=== PATIENT | male | born 1960 | race Hispanic/Latino ===

== ENCOUNTER → 2019-10-24 | Outpatient (CLI) | payer MEDICARE, OTHER ==
[~2019-10-24] MED LIST: ASPI-1005 PO; ATOR20TA65 PO; CALC667C10 PO; FAMO20TA8 PO; FOLI1TAB85 PO; GLIP10TA9 PO; LEVO100T12 PO; LOSA25TA41 PO; PIND10TA2 PO; SEVE800T7 PO; TICA90TA PO
== END | disposition home or self-care (01) ==
LOC: SHCH 10:00
PROVIDERS: ATTEND Internal Medicine Cardiovascular Disease
DX: I10 Essential (primary) hypertension (principal)
CPT/HCPCS: 93306; 93356

== ENCOUNTER → 2019-10-31 | Outpatient (CLI) | payer MEDICARE, OTHER ==
[~2019-10-31] MED LIST changes: -ASPI-1005 PO; -ATOR20TA65 PO; -CALC667C10 PO; -FAMO20TA8 PO; -FOLI1TAB85 PO; -GLIP10TA9 PO; -LEVO100T12 PO; -LOSA25TA41 PO; -PIND10TA2 PO; +REGADENOSON 0.4 MG/5 ML PF SYG IVP SCH; -SEVE800T7 PO; -TICA90TA PO
== END | disposition home or self-care (01) ==
LOC: SHCH 07:52
PROVIDERS: ATTEND Internal Medicine Cardiovascular Disease
DX: I95.1 Orthostatic hypotension (principal); I10 Essential (primary) hypertension; R07.89 Other chest pain; I73.9 Peripheral vascular disease, unspecified
CPT/HCPCS: 78452; 93017; 96374; A9500 ×2; J2785

== ENCOUNTER 2019-12-05 06:06 | Observation (INO) | payer MEDICARE ==
[2019-12-03 10:42] LABS: BASOPHILS % (AUTO) 1.1 % (0.0-5.0); EOSINOPHILS % (AUTO) 4.1 % (0.0-8.0); HEMATOCRIT 34.7 % (42-54); MEAN CORPUSCULAR HGB CONC 33.4 g/dL (32.0-36.0); MEAN CORPUSCULAR VOLUME 101.8 fL (79-99); MONOCYTES % (AUTO) 11.4 % (3.0-13.0); NEUTROPHILS % (AUTO) 61.9 % (40.0-77.0); PLATELET COUNT (AUTO) 216 K/uL (130-400); RED BLOOD CELL COUNT(AUTO) 3.41 MIL/uL (4.50-6.20); RED CELL DISTRIBUTION WIDTH 16.7 % (11.0-15.5); WHITE BLOOD COUNT (AUTO) 6.6 K/uL (4.8-10.8)
[2019-12-03 10:55] LABS: INR 0.92 (0.85-1.15); PARTIAL THROMBOPLASTIN TIME 25.7 SEC (26.3-35.5)
[2019-12-03 11:13] LABS: CREATININE 9.1 mg/dL (0.5-1.5); POTASSIUM 6.2 mmol/L (3.5-5.1)
[2019-12-03 12:05] LABS: APPEARANCE,URINE Clear (CLEAR); BILIRUBIN,URINE Negative (NEGATIVE); COLOR,URINE Yellow (YELLOW); GLUCOSE, URINE (UA) 500 mg/dL (NEGATIVE); KETONES,URINE Negative (NEGATIVE); LEUKOCYTE ESTERASE ,URINE Trace (NEGATIVE); NITRATE,URINE Negative (NEGATIVE); OCCULT BLOOD,URINE Small (NEGATIVE); PH,URINE 7.5 (5.0-8.0); PROTEIN,URINE 300 mg/dL (NEGATIVE)
[2019-12-03 12:40] LABS: BACTERIA,URINE Rare /HPF (None Seen); SQUAMOUS EPITHELIAL CELL,UR Rare /HPF (0-2); WBC,URINE 0-1 /HPF (0-1)
--- NOTE | 2019-12-04 11:05 | NUR ---
MARIA FERNANDA VERMA ON PHONE. ORDERS RECEIVED TO REDRAW POTASSIUM ON AM OF PROCEDURE
[2019-12-04 14:36] VITALS: BP 167/76
[2019-12-05] VITALS (12 sets, daily range): BP systolic 139–182; BP diastolic 64–84
[~2019-12-05] VITALS: Ht 172.7 cm; Wt 100.7 kg
[~2019-12-05 06:06] MED LIST changes: +ASPI-1005 PO; +ATOR20TA65 PO; +CALC667C10 PO; +FAMO20TA8 PO; +FOLI1TAB85 PO; +GLIP10TA9 PO; +LEVO100T12 PO; +PIND10TA2 PO; -REGADENOSON 0.4 MG/5 ML PF SYG IVP SCH; +SEVE800T7 PO
[2019-12-05] MEDS ORDERED: SODIUM CHLORIDE 0.9% 1000ML 1,000 ML IV ONE (07:15)
[2019-12-05] MEDS ORDERED: INSULIN HUMULIN R 100 UNIT/ML 3ML ONE (07:34)
[2019-12-05 08:20] LABS: CREATININE 7.7 mg/dL (0.5-1.5); POTASSIUM 5.2 mmol/L (3.5-5.1)
[2019-12-05] MEDS ORDERED: SODIUM BICARB 50MEQ 50ML VIAL ONE (10:23)
[2019-12-05] MEDS ORDERED: HEPARIN SODIUM 1000UNIT/ML 10ML VIAL ONE (10:23)
[2019-12-05] MEDS ORDERED: IOHEXOL 350 MG/ML 100ML INFUS..BTL IV ONE ×2 (10:24→12:28)
[2019-12-05] MEDS ORDERED: LIDOCAINE HCL 2% 20ML ONE (10:24)
[2019-12-05] MEDS ORDERED: NITROGLYCERIN 2 MG/VIAL VIAL IV ONE (10:45)
[2019-12-05] MEDS ORDERED: BIVALIRUDIN 250 MG/VIAL IV ONE (11:48)
[2019-12-05] MEDS ORDERED: ASPIRIN 325MG EC TAB 325 MG TABLET.DR PO ONE (12:04)
[2019-12-05] MEDS ORDERED: TICAGRELOR 90 MG TABLET ONE (12:04)
[2019-12-05] MEDS ORDERED: LABETALOL 20 MG/4 ML DISP.SYRIN IV ONE ×2 (12:44→13:00)
[2019-12-05] MEDS ORDERED: HYDRALAZINE HCL 20 MG/ML VIAL ONE ×2 (13:42→14:22)
[2019-12-05] MEDS ORDERED: ACETAMINOPHEN EXTRA STRENGTH 500 MG TABLET ONE (14:34)
[2019-12-05] MEDS ORDERED: ACETAMINOPHEN EXTRA STRENGTH 500 MG TABLET PO ONE (15:45)
--- NOTE | 2019-12-05 16:28 | NUR ---
PATIENT TAKEN TO ROOM 421 AND CARE TAKEN OVER BY CHIQUISRN , REPORT GIVEN USING SBAR AND RIGHT FEMORAL SITE CHECKED BY KAROLINE SIM.
[2019-12-05] MEDS: SEVELAMER HCL 800 MG TABLET PO SCH (17:36)
[2019-12-05] MEDS: CALCIUM ACETATE 667 MG CAPSULE PO SCH (17:36)
[2019-12-05] MEDS: GLIPIZIDE 5 MG TABLET PO SCH (20:24)
[2019-12-05] MEDS: TICAGRELOR 90 MG TABLET PO SCH (20:24)
[2019-12-05] MEDS: PINDOLOL 5 MG TAB PO SCH (20:24)
[2019-12-05] MEDS ORDERED: ATORVASTATIN CALCIUM 20 MG TABLET PO SCH (21:00)
[2019-12-05] MEDS ORDERED: FAMOTIDINE 20MG TAB 20 MG TAB PO SCH (21:00)
[2019-12-05] MEDS: INSULIN HUMULIN R 100 UNIT/ML 3ML SQ SCH (21:34)
[2019-12-06] VITALS: BP 151/71
[2019-12-06 04:43] VITALS: BP 152/68
[2019-12-06] MEDS: INSULIN HUMULIN R 100 UNIT/ML 3ML SQ SCH ×3 (06:10→15:50)
[2019-12-06] MEDS ORDERED: LEVOTHYROXINE 100 MCG TABLET PO SCH (06:30)
[2019-12-06 06:38] LABS: HEMATOCRIT 31.7 % (42-54); MEAN CORPUSCULAR HEMOGLOBIN 32.8 pg (27.0-33.0); MEAN CORPUSCULAR HGB CONC 32.5 g/dL (32.0-36.0); RED BLOOD CELL COUNT(AUTO) 3.14 MIL/uL (4.50-6.20); RED CELL DISTRIBUTION WIDTH 16.6 % (11.0-15.5)
[2019-12-06 06:55] LABS: POTASSIUM 5.1 mmol/L (3.5-5.1)
[2019-12-06 08:00] VITALS: BP 193/82
[2019-12-06] MEDS: SEVELAMER HCL 800 MG TABLET PO SCH ×4 (08:12→16:34)
[2019-12-06] MEDS: CALCIUM ACETATE 667 MG CAPSULE PO SCH ×2 (08:12→11:43)
[2019-12-06] MEDS: GLIPIZIDE 5 MG TABLET PO SCH (08:13)
[2019-12-06] MEDS: TICAGRELOR 90 MG TABLET PO SCH ×2 (08:13→16:54)
[2019-12-06] MEDS: PINDOLOL 5 MG TAB PO SCH (08:28)
[2019-12-06] MEDS ORDERED: Vitamin B Complex/Vit C/Folic Acid PO SCH ×2 (09:00→21:00)
[2019-12-06] MEDS ORDERED: ASPIRIN 81MG TAB.CHEW PO SCH (09:00)
[2019-12-06 12:07] VITALS: BP 196/91
[2019-12-06] MEDS ORDERED: CALCIUM ACETATE 667 MG CAPSULE PO SCH (14:00)
[2019-12-06] MEDS ORDERED: LOSA25TA41 PO (15:02)
[2019-12-06] MEDS ORDERED: TICA90TA PO (15:02)
[2019-12-06 16:00] VITALS: BP 108/58
[2019-12-06] MEDS ORDERED: PINDOLOL 5 MG TAB PO SCH (21:00)
[2019-12-06] MEDS ORDERED: ATORVASTATIN CALCIUM 20 MG TABLET PO SCH (21:00)
[2019-12-08 18:09] LABS: HEPATITIS Bs ANTIGEN SCREEN P Negative (Negative)
== END 2019-12-06 17:30 | disposition home or self-care (01) ==
LOC: DAH 06:06 → DAHIP 06:07 → 4DH 16:30
PROVIDERS: ADMIT Internal Medicine Cardiovascular Disease; ATTEND Internal Medicine Cardiovascular Disease
DX: I35.0 Nonrheumatic aortic (valve) stenosis (principal); I25.10 Atherosclerotic heart disease of native coronary artery without angina pectoris; I13.2 Hypertensive heart and chronic kidney disease with heart failure and with stage 5 chronic kidney disease, or end stage renal disease; I50.32 Chronic diastolic (congestive) heart failure; E11.22 Type 2 diabetes mellitus with diabetic chronic kidney disease; N18.6 End stage renal disease; E11.42 Type 2 diabetes mellitus with diabetic polyneuropathy; E78.5 Hyperlipidemia, unspecified; E87.5 Hyperkalemia; E66.9 Obesity, unspecified; E03.9 Hypothyroidism, unspecified; D64.9 Anemia, unspecified; G47.30 Sleep apnea, unspecified; Z99.2 Dependence on renal dialysis; Z95.5 Presence of coronary angioplasty implant and graft; Z91.19 Patient's noncompliance with other medical treatment and regimen
CPT/HCPCS: 36415 ×3; 71045; 80048 ×3; 81001; 82948 ×7; 85025; 85027; 85610; 85730; 86704; 86706; 87340; 87520; 93005; 93460; 93567; 96360; 96361 ×2; A4215; A4216; A4221; A4222; A4223 ×3; A4606; A4663; C1760; C1769 ×2; C1874 ×2; C1887; C1894 ×3; C9600; C9601; G0378 ×19; J0360 ×2; J0583; J1644 ×2; J1815 ×3; J3490 ×3; J7030; Q9965 ×3; Q9967; 90935

== ENCOUNTER 2022-02-23 05:37 | Day surgery (SDC) | payer MEDICARE ==
[2022-02-21 11:50] LABS: BASOPHILS % (AUTO) 1.1 % (0.0-5.0); EOSINOPHILS % (AUTO) 6.3 % (0.0-8.0); HEMATOCRIT 34.3 % (42-54); LYMPHOCYTES % (AUTO) 33.5 % (21.0-51.0); MEAN CORPUSCULAR HEMOGLOBIN 29.7 pg (27.0-33.0); MEAN CORPUSCULAR HGB CONC 31.8 g/dL (32.0-36.0); MEAN CORPUSCULAR VOLUME 93.5 fL (79-99); MONOCYTES % (AUTO) 9.3 % (3.0-13.0); NEUTROPHILS % (AUTO) 49.6 % (40.0-77.0); PLATELET COUNT (AUTO) 166 K/uL (130-400); RED BLOOD CELL COUNT(AUTO) 3.67 MIL/uL (4.50-6.20); RED CELL DISTRIBUTION WIDTH 15.2 % (11.0-15.5); WHITE BLOOD COUNT (AUTO) 5.4 K/uL (4.8-10.8)
[2022-02-21 12:09] LABS: INR 0.97 (0.85-1.15); PROTHROMBIN TIME 10.6 SEC (9.6-11.6)
[2022-02-21 12:10] LABS: PARTIAL THROMBOPLASTIN TIME 27.3 SEC (26.3-35.5)
[2022-02-21 12:28] LABS: B-TYPE NATRIURETIC PEPTIDE 1170 pg/mL (0-100)
[2022-02-21 14:54] LABS: POTASSIUM 4.5 mmol/L (3.5-5.1)
[2022-02-22 11:20] VITALS: BP 175/76
[~2022-02-23] VITALS: Ht 172.7 cm; Wt 94.3 kg
[2022-02-23] VITALS (8 sets, daily range): BP systolic 164–195; BP diastolic 70–86
[~2022-02-23 05:37] MED LIST changes: +AMIO200T68 PO; -ATOR20TA65 PO; +ATOR40TA71 PO; -FOLI1TAB85 PO; +LACO150T4 PO; +LACO50TA6 PO; +LEVE500T19 PO; +MIDO5TAB4 PO; -PIND10TA2 PO
[2022-02-23] MEDS ORDERED: 0.9% NACL 500ML IV.SOLN 500 ML IV SCH (06:00)
[2022-02-23] MEDS ORDERED: LIDOCAINE HCL 400MG/20ML VIAL ONE ×2 (07:32→07:48)
[2022-02-23] MEDS ORDERED: IODIXANOL 320 MG/ML 100 ML VIAL ONE (07:32)
[2022-02-23] MEDS ORDERED: MIDAZOLAM HCL 1 MG/ML 2ML VIAL ONE (07:35)
[2022-02-23] MEDS ORDERED: FENTANYL CITRATE PF 50 MCG/1 ML 2ML VIAL ONE (07:35)
[2022-02-23] MEDS ORDERED: HEPARIN 10,000 UNIT/10ML (1,000 UNIT/ML) VIAL ONE (07:51)
[2022-02-23] MEDS ORDERED: LABETALOL 20MG SYG IV ONE (08:08)
[2022-02-23] MEDS ORDERED: CLOPIDOGREL 300MG TAB ONE (08:18)
[2022-02-23] MEDS ORDERED: GLUCAGON 1MG KIT 1 MG ML IM PRN (08:30)
[2022-02-23] MEDS ORDERED: NITROGLYCERIN 0.4 MG SL TAB SL PRN (08:30)
[2022-02-23] MEDS ORDERED: DEXTROSE 50%-WATER 50 ML DISP.SYRIN IV PRN (08:30)
[2022-02-23] MEDS ORDERED: ONDANSETRON 4MG INJ ONE (08:58)
[2022-02-23] MEDS ORDERED: ONDANSETRON 4MG INJ IVP SCH (10:30)
[2022-02-23] MEDS ORDERED: 0.9%NACL 1000ML 1,000 ML IV ONE (10:36)
[2022-02-23] MEDS ORDERED: INSULIN HUMULIN R 100 UNIT/ML 3ML SQ SCH (11:30)
== END 2022-02-23 10:25 | disposition home or self-care (01) ==
LOC: DAH 05:37
PROVIDERS: ATTEND Internal Medicine Cardiovascular Disease
DX: I87.2 Venous insufficiency (chronic) (peripheral) (principal); D72.0 Genetic anomalies of leukocytes; I87.1 Compression of vein; E78.5 Hyperlipidemia, unspecified; E11.22 Type 2 diabetes mellitus with diabetic chronic kidney disease; E11.51 Type 2 diabetes mellitus with diabetic peripheral angiopathy without gangrene; I13.2 Hypertensive heart and chronic kidney disease with heart failure and with stage 5 chronic kidney disease, or end stage renal disease; N18.6 End stage renal disease; I50.32 Chronic diastolic (congestive) heart failure; E66.3 Overweight; Z99.2 Dependence on renal dialysis; Z82.49 Family history of ischemic heart disease and other diseases of the circulatory system; Z68.32 Body mass index [BMI] 32.0-32.9, adult; Z79.01 Long term (current) use of anticoagulants; Z79.82 Long term (current) use of aspirin; Z79.899 Other long term (current) drug therapy
CPT/HCPCS: 80048; 83880; 85025; 85610; 85730; 36415; 37238; 36012; 75820; 37252; 37253 ×5; 82948 ×2; C1876; C1894 ×3; C1725; C1753; C1769; J3010; J3490 ×2; J7030; J1644 ×2; J2250; J2405; Q9967; A4215; A4222; A4221; A4663; A4216; A4606; A4223 ×3; 75822; 99156; 99157

== ENCOUNTER 2022-04-04 05:38 | Emergency (ER) | payer MEDICARE ==
[2022-04-04] MEDS ORDERED: ACETAMINOPHEN 500 MG TABLET PO ONE (06:00)
[2022-04-04] MEDS ORDERED: ONDANSETRON ODT 4MG TAB SL ONE (06:00)
[2022-04-04] MEDS ORDERED: CLONIDINE HCL 0.1 MG TABLET ONE (06:03)
[2022-04-04] MEDS ORDERED: CLONIDINE HCL 0.1 MG TABLET PO ONE (06:30)
[2022-04-04 06:51] VITALS: BP 158/81
== END 2022-04-04 06:52 | disposition home or self-care (01) ==
LOC: EDH 05:38
DX: E11.22 Type 2 diabetes mellitus with diabetic chronic kidney disease (principal); I12.0 Hypertensive chronic kidney disease with stage 5 chronic kidney disease or end stage renal disease; N18.6 End stage renal disease; Z99.2 Dependence on renal dialysis; Z79.899 Other long term (current) drug therapy

== ENCOUNTER 2022-05-14 23:06 | Emergency (ER) | payer MEDICARE ==
[~2022-05-14] VITALS: Ht 172.7 cm; Wt 98.0 kg
[2022-05-14 23:54] LABS: BASOPHILS % (AUTO) 0.6 % (0.0-5.0); HEMATOCRIT 33.4 % (42-54); LYMPHOCYTES % (AUTO) 33.3 % (21.0-51.0); MEAN CORPUSCULAR HEMOGLOBIN 31.4 pg (27.0-33.0); MEAN CORPUSCULAR HGB CONC 31.7 g/dL (32.0-36.0); MEAN CORPUSCULAR VOLUME 98.8 fL (79-99); NEUTROPHILS % (AUTO) 47.8 % (40.0-77.0); PLATELET COUNT (AUTO) 178 K/uL (130-400); RED BLOOD CELL COUNT(AUTO) 3.38 MIL/uL (4.50-6.20); RED CELL DISTRIBUTION WIDTH 14.8 % (11.0-15.5); WHITE BLOOD COUNT (AUTO) 6.3 K/uL (4.8-10.8)
[2022-05-15] MEDS ORDERED: IPRATROPIUM/ALBUTEROL SULFATE 3 ML SOLUTION IH ONE
[2022-05-15 00:12] LABS: CREATININE 7.7 mg/dL (0.5-1.5); POTASSIUM 5.4 mmol/L (3.5-5.1)
[2022-05-15 00:17] LABS: ALBUMIN 3.3 g/dL (3.5-5.0); TOTAL PROTEIN, SERUM 7.3 g/dL (6.0-8.3)
[2022-05-15] MEDS ORDERED: IPRATROPIUM 0.5 MG/2.5 ML INH IH ONE ×2 (01:30)
[2022-05-15] MEDS ORDERED: ALBUTEROL 0.042% 1.25MG/3ML IH ONE ×4 (01:30)
[2022-05-15] MEDS ORDERED: NIFEDIPINE 10 MG CAP PO ONE (02:00)
[2022-05-15 02:50] VITALS: BP 142/70
== END 2022-05-15 03:27 | disposition home or self-care (01) ==
LOC: EDH 23:06
DX: F41.9 Anxiety disorder, unspecified (principal); R06.02 Shortness of breath; I16.0 Hypertensive urgency; E11.9 Type 2 diabetes mellitus without complications; I10 Essential (primary) hypertension; E78.00 Pure hypercholesterolemia, unspecified; Z95.1 Presence of aortocoronary bypass graft; Z79.899 Other long term (current) drug therapy; Z79.82 Long term (current) use of aspirin
CPT/HCPCS: 36415; 71045; 80053; 83880; 84484; 85025; 93005; 94640

== ENCOUNTER 2022-06-06 06:48 | Emergency (ER) | payer MEDICARE ==
[2022-06-06 07:08] LABS: BASOPHILS % (AUTO) 0.8 % (0.0-5.0); EOSINOPHILS % (AUTO) 3.2 % (0.0-8.0); HEMATOCRIT 36.7 % (42-54); LYMPHOCYTES % (AUTO) 25.1 % (21.0-51.0); MEAN CORPUSCULAR HEMOGLOBIN 32.1 pg (27.0-33.0); MEAN CORPUSCULAR VOLUME 97.3 fL (79-99); MONOCYTES % (AUTO) 9.3 % (3.0-13.0); NEUTROPHILS % (AUTO) 61.3 % (40.0-77.0); PLATELET COUNT (AUTO) 155 K/uL (130-400); RED BLOOD CELL COUNT(AUTO) 3.77 MIL/uL (4.50-6.20); WHITE BLOOD COUNT (AUTO) 7.8 K/uL (4.8-10.8)
[2022-06-06 07:29] LABS: ALBUMIN 3.8 g/dL (3.5-5.0); POTASSIUM 5.5 mmol/L (3.5-5.1)
[2022-06-06 07:34] LABS: TOTAL PROTEIN, SERUM 7.7 g/dL (6.0-8.3)
[2022-06-06 07:46] LABS: CREATININE 8.8 mg/dL (0.5-1.5)
[2022-06-06 09:03] VITALS: BP 151/85
== END 2022-06-06 11:39 | disposition home or self-care (01) ==
LOC: EDH 06:48
DX: F41.9 Anxiety disorder, unspecified (principal); E11.22 Type 2 diabetes mellitus with diabetic chronic kidney disease; I12.0 Hypertensive chronic kidney disease with stage 5 chronic kidney disease or end stage renal disease; N18.6 End stage renal disease; E78.00 Pure hypercholesterolemia, unspecified; I21.9 Acute myocardial infarction, unspecified; Z79.84 Long term (current) use of oral hypoglycemic drugs; Z95.1 Presence of aortocoronary bypass graft; Z99.2 Dependence on renal dialysis
CPT/HCPCS: 36415; 70490; 71045; 80053; 84484; 85025; 93005

== ENCOUNTER 2023-02-27 12:32 | Emergency (ER) | payer MEDICARE ==
[~2023-02-27] VITALS: Ht 172.7 cm; Wt 93.7 kg
[2023-02-27 16:27] LABS: BASOPHILS # (AUTO) 0.07 K/uL (0.00-0.20); BASOPHILS % (AUTO) 0.9 % (0.0-5.0); EOSINOPHILS # (AUTO) 0.47 K/uL (0.00-0.70); HEMATOCRIT 33.6 % (42-54); IMMATURE GRANULOCYTE ABSOLUTE 0.06 K/uL (0-1); LYMPHOCYTES # (AUTO) 1.1 K/uL (1.0-4.8); LYMPHOCYTES % (AUTO) 14.5 % (21.0-51.0); MEAN CORPUSCULAR HEMOGLOBIN 33.2 pg (27.0-33.0); MEAN CORPUSCULAR VOLUME 100.6 fL (79-99); MONOCYTES # (AUTO) 0.6 K/uL (0.1-1.0); MONOCYTES % (AUTO) 7.5 % (3.0-13.0); NEUTROPHILS # (AUTO) 5.5 K/uL (1.8-7.7); NEUTROPHILS % (AUTO) 70.3 % (40.0-77.0); PLATELET COUNT (AUTO) 167 K/uL (130-400); RED BLOOD CELL COUNT(AUTO) 3.34 MIL/uL (4.50-6.20); RED CELL DISTRIBUTION WIDTH 12.1 % (11.0-15.5); WHITE BLOOD COUNT (AUTO) 7.9 K/uL (4.8-10.8)
[2023-02-27 16:35] LABS: CREATININE 5.9 mg/dL (0.5-1.5); POTASSIUM 4.3 mmol/L (3.5-5.1)
[2023-02-27] MEDS ORDERED: CLOT15CR23 TP (17:51)
[2023-02-27] MEDS ORDERED: HYDR-4060 PO (17:51)
[2023-02-27 18:32] VITALS: BP 130/74; PULSE 90; RESP 16; O2SAT 98
== END 2023-02-27 18:35 | disposition home or self-care (01) ==
LOC: EDH 12:32
DX: N48.5 Ulcer of penis (principal); N48.1 Balanitis; I12.0 Hypertensive chronic kidney disease with stage 5 chronic kidney disease or end stage renal disease; E11.22 Type 2 diabetes mellitus with diabetic chronic kidney disease; N18.6 End stage renal disease; Z99.2 Dependence on renal dialysis; E78.00 Pure hypercholesterolemia, unspecified; Z79.84 Long term (current) use of oral hypoglycemic drugs; Z95.1 Presence of aortocoronary bypass graft
CPT/HCPCS: 36415; 80048; 85025; 86592

== ENCOUNTER → 2023-04-26 | Outpatient (CLI) | payer MEDICARE ==
[~2023-04-26] MED LIST changes: -AMIO200T68 PO; -ASPI-1005 PO; +ASPI-1197 PO; +ATOR40TA69 PO; -ATOR40TA71 PO; -CALC667C10 PO; +CHOL-9 PO; +DOXY100C5 PO; +FLUC100T12 PO; +FOLI0.8T22 PO; -LACO150T4 PO; -LACO50TA6 PO; +LEVO100C4 PO; -LEVO100T12 PO; +LOSA50TA64 PO; -MIDO5TAB4 PO; +ONDA4TAB10 PO; +SERT-439 PO; -SEVE800T7 PO; +SUCR500T PO; +TAMS-1 PO; +TRAZ-187 PO
== END | disposition home or self-care (01) ==
LOC: WHH 10:32
PROVIDERS: ATTEND Nurse Practitioner Family
DX: N48.5 Ulcer of penis (principal); N47.1 Phimosis; N48.1 Balanitis; E11.42 Type 2 diabetes mellitus with diabetic polyneuropathy; I25.10 Atherosclerotic heart disease of native coronary artery without angina pectoris; E78.00 Pure hypercholesterolemia, unspecified; E11.649 Type 2 diabetes mellitus with hypoglycemia without coma; E11.22 Type 2 diabetes mellitus with diabetic chronic kidney disease; I12.0 Hypertensive chronic kidney disease with stage 5 chronic kidney disease or end stage renal disease; N18.6 End stage renal disease; Z99.2 Dependence on renal dialysis; Z95.1 Presence of aortocoronary bypass graft
CPT/HCPCS: G0463

== ENCOUNTER → 2023-05-11 | Outpatient (CLI) | payer MEDICARE ==
[~2023-05-11] VITALS: Ht 167.6 cm; Wt 96.7 kg
[2023-05-11 14:27] LABS: HEMATOCRIT 33.5 % (42-54); MEAN CORPUSCULAR HEMOGLOBIN 32.6 pg (27.0-33.0); MEAN CORPUSCULAR HGB CONC 31.6 g/dL (32.0-36.0); MEAN CORPUSCULAR VOLUME 103.1 fL (79-99); RED BLOOD CELL COUNT(AUTO) 3.25 MIL/uL (4.50-6.20); RED CELL DISTRIBUTION WIDTH 14.3 % (11.0-15.5); WHITE BLOOD COUNT (AUTO) 7.7 K/uL (4.8-10.8)
[2023-05-11 14:33] VITALS: BP 160/90; PULSE 79; RESP 15
[2023-05-11 14:39] LABS: INR 0.94 (0.85-1.15); PROTHROMBIN TIME 10.9 SEC (9.6-11.6)
[2023-05-11 14:40] LABS: PARTIAL THROMBOPLASTIN TIME 29.4 SEC (26.3-35.5)
[2023-05-11 14:43] LABS: ALBUMIN 3.4 g/dL (3.5-5.0); BILIRUBIN,TOTAL 0.4 mg/dL (0.2-1.0); CREATININE 6.5 mg/dL (0.5-1.5); POTASSIUM 5.5 mmol/L (3.5-5.1); TOTAL PROTEIN, SERUM 7.6 g/dL (6.0-8.3)
== END | disposition home or self-care (01) ==
LOC: DAH 10:00 → EDSTATUS 17:00
PROVIDERS: ATTEND Urology
DX: D29.0 Benign neoplasm of penis (principal); Z45.02 Encounter for adjustment and management of automatic implantable cardiac defibrillator; T82.111A Breakdown (mechanical) of cardiac pulse generator (battery), initial encounter; I45.10 Unspecified right bundle-branch block; Z86.2 Personal history of diseases of the blood and blood-forming organs and certain disorders involving the immune mechanism
CPT/HCPCS: 80053; 85027; 85610; 85730; 36415; 71046; 93005; A6260

== ENCOUNTER → 2023-05-14 | Outpatient (CLI) | payer MEDICARE | END | disposition home or self-care (01) | LOC: WHH 07:58 | PROVIDERS: ATTEND Nurse Practitioner Family | DX: N48.5 Ulcer of penis (principal); N47.1 Phimosis; N48.1 Balanitis; E11.42 Type 2 diabetes mellitus with diabetic polyneuropathy; I25.10 Atherosclerotic heart disease of native coronary artery without angina pectoris; E78.00 Pure hypercholesterolemia, unspecified; E11.649 Type 2 diabetes mellitus with hypoglycemia without coma; E11.22 Type 2 diabetes mellitus with diabetic chronic kidney disease; I12.0 Hypertensive chronic kidney disease with stage 5 chronic kidney disease or end stage renal disease; N18.6 End stage renal disease; Z99.2 Dependence on renal dialysis; Z95.1 Presence of aortocoronary bypass graft; Z79.899 Other long term (current) drug therapy | CPT/HCPCS: G0463 ==

== ENCOUNTER → 2023-05-21 | Outpatient (CLI) | payer MEDICARE ==
[~2023-05-21] MED LIST changes: -DOXY100C5 PO; -FAMO20TA8 PO; -FLUC100T12 PO; +LIDOCAINE HCL 4% LTA SOL 4 ML VIAL TP ONE
== END | disposition home or self-care (01) ==
LOC: WHH 08:09
PROVIDERS: ATTEND Nurse Practitioner Family
DX: N48.5 Ulcer of penis (principal); N47.1 Phimosis; N48.1 Balanitis; S31.20XA Unspecified open wound of penis, initial encounter; E11.51 Type 2 diabetes mellitus with diabetic peripheral angiopathy without gangrene; E11.42 Type 2 diabetes mellitus with diabetic polyneuropathy; E11.22 Type 2 diabetes mellitus with diabetic chronic kidney disease; I12.0 Hypertensive chronic kidney disease with stage 5 chronic kidney disease or end stage renal disease; N18.6 End stage renal disease; E11.649 Type 2 diabetes mellitus with hypoglycemia without coma; I25.10 Atherosclerotic heart disease of native coronary artery without angina pectoris; E78.00 Pure hypercholesterolemia, unspecified; Z99.2 Dependence on renal dialysis; Z95.1 Presence of aortocoronary bypass graft; Z79.899 Other long term (current) drug therapy; X58.XXXA Exposure to other specified factors, initial encounter; Y93.89 Activity, other specified; Y92.89 Other specified places as the place of occurrence of the external cause; Y99.8 Other external cause status
CPT/HCPCS: G0463

== ENCOUNTER → 2023-05-28 | Outpatient (CLI) | payer MEDICARE ==
[~2023-05-28] MED LIST changes: -LIDOCAINE HCL 4% LTA SOL 4 ML VIAL TP ONE
== END | disposition home or self-care (01) ==
LOC: WHH 08:00
PROVIDERS: ATTEND Nurse Practitioner Family
DX: E11.622 Type 2 diabetes mellitus with other skin ulcer (principal); N48.5 Ulcer of penis; S31.20XD Unspecified open wound of penis, subsequent encounter; N47.1 Phimosis; N48.1 Balanitis; E11.42 Type 2 diabetes mellitus with diabetic polyneuropathy; E11.51 Type 2 diabetes mellitus with diabetic peripheral angiopathy without gangrene; E11.22 Type 2 diabetes mellitus with diabetic chronic kidney disease; I12.0 Hypertensive chronic kidney disease with stage 5 chronic kidney disease or end stage renal disease; N18.6 End stage renal disease; D63.1 Anemia in chronic kidney disease; I25.10 Atherosclerotic heart disease of native coronary artery without angina pectoris; E78.00 Pure hypercholesterolemia, unspecified; Z99.2 Dependence on renal dialysis; Z95.1 Presence of aortocoronary bypass graft; Z79.899 Other long term (current) drug therapy; X58.XXXD Exposure to other specified factors, subsequent encounter
CPT/HCPCS: G0463

== ENCOUNTER → 2023-06-04 | Outpatient (CLI) | payer MEDICARE ==
[~2023-06-04] MED LIST changes: +LIDOCAINE HCL 4% LTA SOL 4 ML VIAL TP ONE
== END | disposition home or self-care (01) ==
LOC: WHH 10:04
PROVIDERS: ATTEND Nurse Practitioner Family
DX: E11.622 Type 2 diabetes mellitus with other skin ulcer (principal); N48.5 Ulcer of penis; S31.20XD Unspecified open wound of penis, subsequent encounter; N47.1 Phimosis; N48.1 Balanitis; E11.42 Type 2 diabetes mellitus with diabetic polyneuropathy; E11.51 Type 2 diabetes mellitus with diabetic peripheral angiopathy without gangrene; E11.22 Type 2 diabetes mellitus with diabetic chronic kidney disease; I12.0 Hypertensive chronic kidney disease with stage 5 chronic kidney disease or end stage renal disease; N18.6 End stage renal disease; D63.1 Anemia in chronic kidney disease; I25.10 Atherosclerotic heart disease of native coronary artery without angina pectoris; E78.00 Pure hypercholesterolemia, unspecified; Z99.2 Dependence on renal dialysis; Z95.1 Presence of aortocoronary bypass graft; Z79.899 Other long term (current) drug therapy; X58.XXXD Exposure to other specified factors, subsequent encounter
CPT/HCPCS: G0463

== ENCOUNTER → 2023-06-11 | Outpatient (CLI) | payer MEDICARE ==
[~2023-06-11] MED LIST changes: -LIDOCAINE HCL 4% LTA SOL 4 ML VIAL TP ONE
== END | disposition home or self-care (01) ==
LOC: WHH 08:05
PROVIDERS: ATTEND Nurse Practitioner Family
DX: S31.20XD Unspecified open wound of penis, subsequent encounter (principal); N48.5 Ulcer of penis; N47.1 Phimosis; N48.1 Balanitis; E11.42 Type 2 diabetes mellitus with diabetic polyneuropathy; E11.51 Type 2 diabetes mellitus with diabetic peripheral angiopathy without gangrene; E11.22 Type 2 diabetes mellitus with diabetic chronic kidney disease; I12.0 Hypertensive chronic kidney disease with stage 5 chronic kidney disease or end stage renal disease; N18.6 End stage renal disease; D63.1 Anemia in chronic kidney disease; I25.10 Atherosclerotic heart disease of native coronary artery without angina pectoris; E78.00 Pure hypercholesterolemia, unspecified; Z99.2 Dependence on renal dialysis; Z95.1 Presence of aortocoronary bypass graft; Z79.899 Other long term (current) drug therapy; X58.XXXD Exposure to other specified factors, subsequent encounter
CPT/HCPCS: G0463

== ENCOUNTER → 2023-07-02 | Outpatient (CLI) | payer MEDICARE | END | disposition home or self-care (01) | LOC: WHH 09:18 | PROVIDERS: ATTEND Nurse Practitioner Family | DX: S31.20XD Unspecified open wound of penis, subsequent encounter (principal); N48.5 Ulcer of penis; N47.1 Phimosis; N48.1 Balanitis; E11.42 Type 2 diabetes mellitus with diabetic polyneuropathy; E11.51 Type 2 diabetes mellitus with diabetic peripheral angiopathy without gangrene; E11.22 Type 2 diabetes mellitus with diabetic chronic kidney disease; I12.0 Hypertensive chronic kidney disease with stage 5 chronic kidney disease or end stage renal disease; N18.6 End stage renal disease; I25.10 Atherosclerotic heart disease of native coronary artery without angina pectoris; D63.1 Anemia in chronic kidney disease; E78.00 Pure hypercholesterolemia, unspecified; Z99.2 Dependence on renal dialysis; Z95.1 Presence of aortocoronary bypass graft; Z79.899 Other long term (current) drug therapy; X58.XXXD Exposure to other specified factors, subsequent encounter | CPT/HCPCS: G0463 ==

== ENCOUNTER → 2023-07-16 | Outpatient (CLI) | payer MEDICARE | END | disposition home or self-care (01) | LOC: WHH 09:34 | PROVIDERS: ATTEND Nurse Practitioner Family | DX: E11.622 Type 2 diabetes mellitus with other skin ulcer (principal); N48.5 Ulcer of penis; S31.20XD Unspecified open wound of penis, subsequent encounter; E11.42 Type 2 diabetes mellitus with diabetic polyneuropathy; E11.51 Type 2 diabetes mellitus with diabetic peripheral angiopathy without gangrene; E11.22 Type 2 diabetes mellitus with diabetic chronic kidney disease; I12.0 Hypertensive chronic kidney disease with stage 5 chronic kidney disease or end stage renal disease; N18.6 End stage renal disease; I25.10 Atherosclerotic heart disease of native coronary artery without angina pectoris; D63.1 Anemia in chronic kidney disease; E78.00 Pure hypercholesterolemia, unspecified; Z99.2 Dependence on renal dialysis; Z95.1 Presence of aortocoronary bypass graft; Z79.899 Other long term (current) drug therapy; X58.XXXD Exposure to other specified factors, subsequent encounter | CPT/HCPCS: G0463 ==

== ENCOUNTER → 2023-07-30 | Outpatient (CLI) | payer MEDICARE | END | disposition home or self-care (01) | LOC: WHH 10:22 | PROVIDERS: ATTEND Nurse Practitioner Family | DX: T81.89XD Other complications of procedures, not elsewhere classified, subsequent encounter (principal); S31.20XD Unspecified open wound of penis, subsequent encounter; E11.622 Type 2 diabetes mellitus with other skin ulcer; L98.491 Non-pressure chronic ulcer of skin of other sites limited to breakdown of skin; E11.22 Type 2 diabetes mellitus with diabetic chronic kidney disease; E11.42 Type 2 diabetes mellitus with diabetic polyneuropathy; I12.0 Hypertensive chronic kidney disease with stage 5 chronic kidney disease or end stage renal disease; N18.6 End stage renal disease; E78.5 Hyperlipidemia, unspecified; K21.9 Gastro-esophageal reflux disease without esophagitis; F32.A Depression, unspecified; Z85.3 Personal history of malignant neoplasm of breast; Z85.828 Personal history of other malignant neoplasm of skin; Z79.899 Other long term (current) drug therapy; Z95.5 Presence of coronary angioplasty implant and graft; X58.XXXD Exposure to other specified factors, subsequent encounter; Y83.8 Other surgical procedures as the cause of abnormal reaction of the patient, or of later complication, without mention of misadventure at the time of the procedure | CPT/HCPCS: G0463 ==

== ENCOUNTER → 2024-01-04 | Outpatient (CLI) | payer MEDICARE ==
[~2024-01-04] MED LIST changes: +GLIP10TA16 PO; -GLIP10TA9 PO; +ONDA-243 PO; -ONDA4TAB10 PO
[2024-01-04 13:05] LABS: ALBUMIN 3.8 g/dL (3.5-5.0); BILIRUBIN,DIRECT 0.1 mg/dL (0.0-0.3); BILIRUBIN,TOTAL 0.4 mg/dL (0.2-1.0); TOTAL PROTEIN, SERUM 7.7 g/dL (6.0-8.3)
== END | disposition home or self-care (01) ==
LOC: LAB 08:16
PROVIDERS: ATTEND Internal Medicine Cardiovascular Disease
DX: I48.0 Paroxysmal atrial fibrillation (principal); E78.5 Hyperlipidemia, unspecified
CPT/HCPCS: 36415; 80061; 80076

== ENCOUNTER 2025-02-23 17:03 | Emergency (ER) | payer MEDICARE ==
[~2025-02-23] VITALS: Ht 167.6 cm; Wt 101.7 kg
[~2025-02-23 17:03] MED LIST changes: -FOLI0.8T22 PO; -LEVO100C4 PO; +LEVO100C5 PO; -LOSA50TA64 PO; +MIDO10TA3 PO; -ONDA-243 PO; -TAMS-1 PO; +VADA150T PO
--- NOTE | 2025-02-23 17:24 | ERN ---
ED Note History of Present Illness Stated Complaint: RT WRIST, LEFT KNEE Chief Complaint: Mechanical Fall Time Seen by MD: 17:09 Time Seen by Midlevel: 17:09 Dictation: The patient is a 64-year-old male with a history of ESRD on dialysis, diabetes, hypertension, Lava who presents to the emergency department with complaints of right wrist pain and left knee pain after an accidental trip and fall onset noon. Patient reports that he tripped over a parking lot post causing him to fall on his left knee and uses right hand to sustain the fall. Patient denies any head trauma, denies any LOC, denies any neck pain abdominal pain chest pain or any other complaints other than the ones reported. Allergies: Coded Allergies: No Known Drug Allergies (Unverified Allergy, Unknown, 10/30/19) Home Meds Active Scripts Midodrine HCl (Midodrine HCl) 10 Mg Tablet, 1 TAB PO DAILY for PRN 30 minutes before dialysis for 30 Days, #30 TAB 0 Refills Prov:HARJIT HAYES MD 07/19/24 Reported Medications Vadadustat (Vafseo) 150 Mg Tablet, 450 MG PO HS, TAB 07/17/24 Sucroferric Oxyhydroxide (Velphoro) 500 Mg Iron Tab.chew, 500 MG PO TID, TAB.CHEW 04/16/23 Cholecalciferol (Vitamin D3) (Vitamin D3) 250 Mcg (19702 Unit) Tablet, 250 MCG PO DAILYBKFST, TAB 04/16/23 Levothyroxine Sodium (Levothyroxine) 100 Mcg Capsule, 100 MCG PO ACBKFST, CAP 04/16/23 Atorvastatin Calcium (LIPITOR) 40 Mg Tablet, 80 MG PO HS, TAB 04/16/23 Levetiracetam (Levetiracetam) 500 Mg Tablet, 500 MG PO BID, TAB 04/16/23 Sertraline HCl (Sertraline HCl) 50 Mg Tablet, 100 MG PO HS, TAB 04/16/23 Aspirin (Aspirin) 81 Mg Tab.chew, 81 MG PO AM, TAB.CHEW 04/16/23 Glipizide (Glipizide) 10 Mg Tablet, 20 MG PO BID, TAB 04/16/23 Trazodone HCl (Trazodone HCl) 100 Mg Tablet, 100 MG PO HS, TAB 04/16/23 Past Medical History Past Medical History: CAD, Diabetes-Type II, High Cholesterol, Heart Disease, Hypertension, Hypothyroid, Renal Disese Additional Past Medical Hx: HX OF TRIPLE BYPASS Surgical History: CABG, Other, LAVA Surgical History Other: HX OF TRIPLE BYPASS Social History: Negative, Lives with family, Other RN Note Reviewed/Agreed w/PFSH: Yes Review of System Dictation Constitutional: Negative for fever,chills, and weight loss Eyes: Negative for injury, pain,redness, and discharge ENT: Negative for injury,pain or swelling Cardiovascular: Negative for chest pain, palpitations, and edema Respiratory: Negative for shortness of breath, cough, and wheezing, Abdomen/GI: Negative for abdominal pain, nausea, vomiting, diarrhea, and constipation Back: Negative for injury and pain : Negative for injury, bleeding and discharge MS/Extremity: Positive for left knee pain, injury , right wrist injury Skin: Negative for rash, and discoloration Neuro: Negative for headache, weakness, numbness, tingling, and seizure Psych: Negative for suicide ideation, homicidal ideation, and hallucinations Initial Vital Sign VS Vital Signs Date Time Temp Pulse Resp B/P (MAP) Pulse Ox O2 Delivery O2 Flow Rate FiO2 02/23/25 17:06 97.5 81 16 129/50 98 Room Air 0 02/23/25 17:10 21 Physical Exam Dictation Vital Signs reviewed General Appearance: Alert, oriented x 3, no acute distress, well developed, nourished. Head and Face: non-traumatic. Eyes: PERRL, pink conjunctivas, eyelid no trauma, anterior chamber with arcus senilis. Ears: Pinnas intact and no signs of trauma or erythema ear canals clear and no discharge TM no erythema Nose: No discharge, no bleeding. Oropharynx: Mouth normal, tongue pink. pharynx clear,no erythema, tonsils no exudates, no abscesses noted, mucous membrane moist Neck: Supple, non-tender, no thyromegaly, no masses, no JVD, no bruits Breast:Deferred Chest:No tenderness, no crepitus, no paradoxical movement, no retractions Lungs:Clear, well-ventilated, symmetric, no rales, no wheezing, no rhonchi, no stridor, good breath sounds bilaterally Heart: Regular rate, regular rhythm, no murmur, no gallops Vascular: no peripheral edema, radial pulses 3+ bilaterally Abdomen: Soft, positive bowel sounds, nondistended, no guarding, nontender, no rebound, no masses no hepatomegaly, no splenomegaly, no Kang's sign, no hernias. Rectal: Deferred Genital: Deferred Neurological: Normal speech, motor function intact, sensory function intact Musculoskeletal: Neck nontender, full range of motion, back nontender, full range of motion, Extremities: nontender, full range of motion , mild swelling and tenderness to right wrist, no open wounds, cap refill less than 2 seconds Skin: Color pink, dry, no turgor, no rash, no lacerations, no contusions. Small abrasion to left knee, Lymphatic: Deferred Results (Laboratory/Radiology) Laboratory/Radiology REASON: fall ORDERING PHYSICIAN: TRACI RAYMOND [employer] PROCEDURE: WRST 3V RT - WRIST COMP 3+VWS RT EXAM: Right wrist radiograph 3 view HISTORY: Fall COMPARISON: None TECHNIQUE: AP, oblique and lateral views of the wrist FINDINGS: Fracture fragment seen along the posterior wrist. Soft tissue swelling. Vascular calcifications. Joint spaces intact with no evidence of dislocation. IMPRESSION: Possible triquetral fracture /[place] REASON: fall ORDERING PHYSICIAN: TRACI RAYMOND [employer] MEMBER PROCEDURE: KNEE 3V LT - KNEE 3VWS LT EXAM: Left knee radiograph 3 view HISTORY: Fall COMPARISON: None TECHNIQUE: AP, lateral and oblique view of the knee FINDINGS: No acute fracture or dislocation. No bony abnormalities. Joint spaces are intact. Mild soft tissue swelling. Vascular calcifications. IMPRESSION: No bony abnormalities seen. /[place] Labs Reviewed?: Yes ED Course ED Course Orders Procedure Category Date Status Time Knee 3vws Lt RAD 02/23/25 Resulted 17:16 Wrist Comp 3+Vws Rt RAD 02/23/25 Resulted 17:16 Hydrocodone/Apap PHA 02/23/25 In Process 5/325 ([place] 5/325mg) 17:30 Wound Care (Er) CPOE 02/23/25 Transmitted 17:20 Neomy PHA 02/23/25 In Process Sulf/Bacitra/Polymyxin 17:30 Volar Splint JOSELO.ER 02/23/25 Verified 19:15 Current Medications Medications (Trade) Dose Ordered Sig/Kenny Route PRN Reason Start Time Stop Time Status Last Admin Dose Admin Acetaminophen/ Hydrocodone Bitart (NORco 5/325MG) 1 tab ONCE PO 02/23/25 17:30 02/23/25 21:30 02/23/25 18:03 Neomycin/ Polymyxin/ Bacitracin (Triple Antibiotic Ointment) APPLY DIRECTED ONCE TP 02/23/25 17:30 02/23/25 21:30 02/23/25 18:02 Vital Signs Date Time Temp Pulse Resp B/P (MAP) Pulse Ox O2 Delivery O2 Flow Rate FiO2 02/23/25 18:22 97.5 81 16 177/89 98 Room Air* 0 21 02/23/25 17:10 97.5 81 16 129/50 98 Room Air* 0 21 02/23/25 17:06 97.5 81 16 129/50 98 Room Air 0 Medical Decision Making MDM The patient is a 64-year-old male with a history of ESRD on dialysis, diabetes, hypertension, Lava who presents to the emergency department with complaints of right wrist pain and left knee pain after an accidental trip and fall onset noon. Patient reports that he tripped over a parking lot post causing him to fall on his left knee and uses right hand to sustain the fall. Patient denies any head trauma, denies any LOC, denies any neck pain abdominal pain chest pain or any other complaints other than the ones reported. Knee x-ray did not show any fractures. Risks x-ray showed possible triquetrum fracture. Patient otherwise neurovascularly intact. No open wounds. We will splint patient instructed to follow up with the ortho. On physical exam patient is in no acute distress, nontoxic appearance. No other obvious injuries. Patient is neurologically intact. Differential diagnosis: Knee sprain, wrist fracture, wrist sprain Need for hospitalization: Patient does not meet criteria for hospitalization. There are no social concerns with this patient. DX & DISP Disposition: Discharge Departure Impression: Primary Impression: Fracture of triquetral bone of right wrist Additional Impressions: Fall, Contusion of left knee Condition: Stable Additional Instructions: Your x-ray showed you have a fracture of your bone on your left wrist. You need to follow up with ortho in your primary doctor. Please return to ER if symptoms worsen, you have severe pain, numbness or discoloration in your hand. Keep your wound clean and dry. Do not put your wound under water, such as in a bath, pool, or sanders. This can slow healing and raise your chance of getting an infection. You should call your doctor if you develop any fever, redness or swelling around the cut, or pus draining from the cut. FOLLOW-UP WITH PRIMARY CARE PROVIDER IN 1 TO 2 DAYS. TAKE MEDICATIONS DIRECTED HERE IN THE EMERGENCY ROOM. OKAY TO CONTINUE HOME MEDICATIONS UNLESS OTHERWISE DISCUSSED DURING YOUR VISIT IN THE EMERGENCY ROOM TODAY. RETURN TO YOUR NEAREST EMERGENCY ROOM IF SYMPTOMS WORSEN OR IF THERE IS NO IMPROVEMENT. CALL 911 IF YOU NEED IMMEDIATE ASSISTANCE. TAKE TYLENOL [id number] NEEDED AND IF NO CONTRAINDICATIONS ARE PRESENT. INCREASE ORAL HYDRATION. A WOUND CULTURE OR URINE CULTURE WAS ORDERED HERE IN THE EMERGENCY ROOM DEPARTMENT PLEASE FOLLOW-UP WITH PRIMARY CARE PROVIDER AND ADVISE THEM TO GET REPEAT PORTS FROM OUR FACILITY. IF YOU HAD ANY SUJATHA WRAP/SPLINTS THAT WERE APPLIED HERE, PLEASE DO NOT REMOVE THEM UNTIL YOU SEE YOUR PRIMARY CARE OR SPECIALTY. Referrals: [facility] DO (PCP) NAVID ORDOÑEZ MD Time of Disposition: 19:20 I have reviewed the case, and I agree with, Diagnosis and Plan TRACI RAYMOND Feb 23, 2025 17:24
[2025-02-23] MEDS: NEOMY SULF/BACITRA/POLYMYXIN B 1 EACH PACKET TP SCH (18:02)
[2025-02-23] MEDS: HYDROcodone/APAP 5/325 1 TAB TABLET PO SCH (18:03)
--- NOTE | 2025-02-23 18:48 | HMCIMG ---
EXAM: Right wrist radiograph 3 view HISTORY: Fall COMPARISON: None TECHNIQUE: AP, oblique and lateral views of the wrist FINDINGS: Fracture fragment seen along the posterior wrist. Soft tissue swelling. Vascular calcifications. Joint spaces intact with no evidence of dislocation. IMPRESSION: Possible triquetral fracture /[place]
--- NOTE | 2025-02-23 18:49 | HMCIMG ---
EXAM: Left knee radiograph 3 view HISTORY: Fall COMPARISON: None TECHNIQUE: AP, lateral and oblique view of the knee FINDINGS: No acute fracture or dislocation. No bony abnormalities. Joint spaces are intact. Mild soft tissue swelling. Vascular calcifications. IMPRESSION: No bony abnormalities seen. /[place]
[2025-02-23 19:45] VITALS: BP 147/68; PULSE 80; RESP 16; TEMP 98.1; O2SAT 98
--- NOTE | 2025-02-23 19:46 | NUR ---
R SPLINT IN PLACED
== END 2025-02-23 19:52 | disposition home or self-care (01) ==
LOC: EDH 17:03
DX: S62.111A Displaced fracture of triquetrum [cuneiform] bone, right wrist, initial encounter for closed fracture (principal); S80.02XA Contusion of left knee, initial encounter; E03.9 Hypothyroidism, unspecified; E11.9 Type 2 diabetes mellitus without complications; E78.00 Pure hypercholesterolemia, unspecified; I11.9 Hypertensive heart disease without heart failure; I25.10 Atherosclerotic heart disease of native coronary artery without angina pectoris; Z79.84 Long term (current) use of oral hypoglycemic drugs; Z95.1 Presence of aortocoronary bypass graft; W01.0XXA Fall on same level from slipping, tripping and stumbling without subsequent striking against object, initial encounter; Y93.89 Activity, other specified; Y92.481 Parking lot as the place of occurrence of the external cause; Y99.8 Other external cause status
CPT/HCPCS: 29125; 73110; 73562; 99284